=== PATIENT | male | born 1985 | race Hispanic/Latino ===

== ENCOUNTER 2017-06-13 16:33 | Emergency (ER) | payer OTHER ==
[~2017-06-13] VITALS: Ht 157.5 cm; Wt 78.8 kg
[2017-06-13] MEDS ORDERED: KEFLEX500 MG PO (17:10)
[2017-06-13] MEDS ORDERED: TRAMADOL HYDROC50 MG PO (17:10)
[2017-06-13 17:59] VITALS: BP 154/85
== END 2017-06-13 18:15 | disposition home or self-care (01) | DRG 605 ==
LOC: ED 16:33
PROC: 0HQFXZZ Repair Right Hand Skin, External Approach (ICD-10-PCS; principal; 2017-06-13)
DX: S61.111A Laceration without foreign body of right thumb with damage to nail, initial encounter (principal); S67.01XA Crushing injury of right thumb, initial encounter; F17.200 Nicotine dependence, unspecified, uncomplicated; W23.0XXA Caught, crushed, jammed, or pinched between moving objects, initial encounter; Y93.89 Activity, other specified; Y92.89 Other specified places as the place of occurrence of the external cause; Y99.0 Civilian activity done for income or pay

== ENCOUNTER 2017-06-15 12:58 | Emergency (ER) | payer OTHER ==
[~2017-06-15] VITALS: Ht 157.5 cm; Wt 75.0 kg
[~2017-06-15 12:58] MED LIST: KEFLEX500 MG PO; TRAMADOL HYDROC50 MG PO
[2017-06-15 13:55] VITALS: BP 118/77
== END 2017-06-15 13:55 | disposition home or self-care (01) | DRG 950 ==
LOC: ED 12:58
DX: S61.111D Laceration without foreign body of right thumb with damage to nail, subsequent encounter (principal); S67.01XD Crushing injury of right thumb, subsequent encounter; W23.0XXD Caught, crushed, jammed, or pinched between moving objects, subsequent encounter

== ENCOUNTER 2017-06-25 15:59 | Emergency (ER) | payer OTHER ==
[~2017-06-25] VITALS: Ht 157.5 cm; Wt 75.0 kg
[2017-06-25] MEDS ORDERED: AMOXICILLIN500 MG PO (17:03)
[2017-06-25 17:20] VITALS: BP 137/79
== END 2017-06-25 17:36 | disposition home or self-care (01) | DRG 950 ==
LOC: ED 15:59
DX: S61.111D Laceration without foreign body of right thumb with damage to nail, subsequent encounter (principal)

== ENCOUNTER 2020-10-23 23:20 | Emergency (ER) | payer OTHER ==
[~2020-10-23] VITALS: Ht 160 cm; Wt 72.0 kg
[~2020-10-23 23:20] MED LIST changes: +AMOXICILLIN500 MG PO
[2020-10-24 00:28] VITALS: BP 109/59
== END 2020-10-24 00:42 | DRG 923 ==
LOC: ED 23:20
DX: Z04.1 Encounter for examination and observation following transport accident (principal)

== ENCOUNTER 2024-08-31 17:51 | Emergency (ER) | payer OTHER ==
[~2024-08-31] VITALS: Ht 160 cm; Wt 72.5 kg
[2024-08-31] MEDS ORDERED: KEFLEX500 MG PO (18:43)
[2024-08-31] MEDS ORDERED: Diph, Acellular Pertussis, Tet 0.5 ML/VIAL (Tdap) SDV IM ONE (18:45)
[2024-08-31] MEDS ORDERED: CEPHALEXIN MONOHYDRATE 500 MG/CAP PO ONE (18:45)
== END 2024-08-31 19:43 | disposition home or self-care (01) | DRG 605 ==
LOC: ED 17:51
DX: S51.811A Laceration without foreign body of right forearm, initial encounter (principal); W22.8XXA Striking against or struck by other objects, initial encounter; Y92.89 Other specified places as the place of occurrence of the external cause; Y99.0 Civilian activity done for income or pay
CPT/HCPCS: 90715